=== PATIENT | male | born 1990 | race Caucasian/White ===

== ENCOUNTER 2023-10-30 12:09 | Emergency (ER) | payer BC, SELFPAY ==
--- NOTE | ~2023-10-30 | XR_ITS ---
EXAMINATION: XR ankle LT min 3V DATE: 10/30/2023 12:52 INDICATION: Left ankle pain TECHNIQUE: Anteroposterior, lateral, mortise, and additional oblique view of the ankle were obtained. COMPARISON: None. FINDINGS: There is diffuse soft tissue swelling of the left ankle. Bone alignment is normal. No fract ure is identified. IMPRESSION: 1. Diffuse soft tissue swelling of the left ankle without acute osseous abnormality. Reviewed, dictated and finalized at location [facility] [employer] IMPRESSION: 1. Diffuse soft tissue swelling of the left ankle without acute osseous abnorma lity.
[2023-10-30 12:21] VITALS: BP 134/84; PULSE 87; RESP 16; TEMP 36.9; O2SAT 98
--- NOTE | 2023-10-30 13:12 | ED.LOWEXIN ---
HPI - Extremity Injury (Lower) General Chief Complaint: Extremity Injury, Lower Stated Complaint: Fall/Injured ankle Time Seen by Provider: 10/30/23 12:50 Source: patient, RN notes reviewed and old records reviewed Mode of arrival: ambulatory Limitations: no limitations History of Present Illness HPI Narrative: 33-year-old male who presents to [facility] with complaints of left ankle injury which occurred yesterday around 3:00 p.m. when he fell down some garage steps and rolled his left ankle and landed on the lateral ankle on concrete floor. Patient has pain to the lateral anterior aspect of his left ankle with bruising and swelling noted with palpable tenderness. Patient reports that he is concerned for possible fracture or ligament injury. Patient reports past history of previous left ankle sprains and strains playing baseball. Patient reports that he has taken some Ibuprofen, iced and elevated his left ankle and his who is PT did tape his ankle yesterday. complaint: ankle injury Onset (ago): day(s) (1) Injury: Left: ankle Type of Injury: other (rolled ankle landed on lateral aspect) Place: home Severity scale (1-10): 6 Exacerbating factors: weight bearing and movement Treatments prior to arrival: cold therapy, NSAIDS and other (taped) Related Data Home Medications Medication Instructions Recorded Confirmed venlafaxine 75 mg capsule,extended 75 mg PO DAILY 10/30/23 10/30/23 release 24 hr Allergies Allergy/AdvReac Type Severity Reaction Status Date / Time No Known Allergies Allergy Verified 10/30/23 12:27 Review of Systems Review of Systems: CONSTITUTIONAL: Denies fever, chills, or sweats. EYES: Denies visual changes, redness, or discharge. ENT: Denies rhinorrhea, congestion, sore throat, or otalgia. CARDIOVASCULAR: Denies chest pain, palpitations, or edema. RESPIRATORY: Denies cough or dyspnea. GASTROINTESTINAL: Denies abdominal pain, nausea, vomiting, or diarrhea. GENITOURINARY: Denies dysuria or hematuria. SKIN: Denies rash or itching. MUSCULOSKELETAL: Denies back pain, Positive for left anterior lateral ankle joint pain, or myalgia. NEUROLOGIC: Denies headache, numbness, or weakness. PSYCHIATRIC: Reports history of anxiety or depression. All systems reviewed & are unremarkable except as noted in HPI and below [facility] Past Medical History Medical History (Updated 10/31/23 @ 08:01 by Gwen Levi NP) Depression Social History Social History (Updated 10/31/23 @ 08:02 by Gwen Levi NP) Smoking status: Never smoker Alcohol intake: current Alcohol use details: social Substance use type: does not use Living arrangements: with family Gender identity (if verbalized by the patient): Male Comments At time of signature, agree with nursing past medical, surgical, social and family history. There is no relevant family history pertinent to the presenting complaint Exam Narrative: GENERAL: Well-appearing, well-nourished, and in no acute distress. HEAD: Normocephalic, atraumatic. EYES: PERRLA and EOMI. ENT: Nares clear, no rhinorrhea or epistaxis. Mucous membranes moist.TM's normal with good light reflex, throat pink with no swelling NECK: Supple. no lymphadenopathy CHEST: Clear to auscultation. No respiratory distress.SAO2 98% on room air HEART: Regular rate and rhythm. No murmur heard. Normal peripheral pulses. ABDOMEN: Soft, nontender, nondistended, normal active bowel sounds. EXTREMITIES: Normal range of motion. No edema.Exception noted to left ankle with pain,bruising and swelling to anterior lateral aspect with increased pain with weight bearing.Pulses strong left foot with no reported tingling or numbness, palpable pain to anterior lateral ankle region from injury. SKIN: Warm, dry, no rash. NEURO: No focal deficits. Alert and oriented x3. Course Course Emergency Course: Patient is aware of diagnosis, understands and agrees to treatment plan.? Shreya choudhary
== END 2023-10-30 13:37 | disposition home or self-care (01) ==
PROVIDERS: Emergency Provider Registered Nurse; PCP Emergency Medicine
DX: S93.402A Sprain of unspecified ligament of left ankle, initial encounter (principal); S96.912A Strain of unspecified muscle and tendon at ankle and foot level, left foot, initial encounter; W10.9XXA Fall (on) (from) unspecified stairs and steps, initial encounter; S90.02XA Contusion of left ankle, initial encounter; S90.32XA Contusion of left foot, initial encounter; F32.A Depression, unspecified
CPT/HCPCS: 73610; 99213; G0463